=== PATIENT | female | born 1950 | race Caucasian/White ===

== ENCOUNTER → 2021-01-03 09:04 | Outpatient (CLI) | payer MEDICAID, MEDICARE, SELFPAY ==
[2021-01-03 12:14] LABS: Absolute Lymphocyte Count 2.79 X10^3/uL (0.83-4.51); Absolute Neutrophil Count 5.7 X10^3/uL (2.0-7.7); Basophil# 0.09 X10^3/uL; Basophil% 0.9 % (0-1); Eosinophil# 0.42 X10^3/uL; Eosinophils% 4.3 % (0-5); Hematocrit 42.4 % (37-47); Hemoglobin 13.8 g/dL (12.0-15.0); Lymphocyte # 2.79 X10^3/ul (0.83-4.51); Lymphocyte % 28.5 % (19-41); Mean Corp Hgb Conc 32.5 g/dL (32-36); Mean Corpuscular Hgb 30.1 pg (27.0-32.0); Mean Corpuscular Volume 92.4 fL (81-99); Mean Platelet Vol. 10.5 fl (6.2-12.0); Monocyte# 0.77 X10^3/uL; Monocyte% 7.9 % (0-10); NRBC Flagged by Analyzer 0 % (0-5); Neutrophil # 5.68 X10^3/uL (2.7-7.7); Platelet Count 258 K/mm3 (150-450); RBC Distribution Width CV 13.3 % (11.6-14.6); RBC Distribution Width SD 44.9 fl (35.1-43.9); Red Blood Count 4.59 M/mm3 (4.2-5.4); White Blood Count 9.8 K/mm3 (4.4-11.0)
[2021-01-03 12:40] LABS: ALB/GLOB Ratio 0.8 RATIO (0.9-2.4); AST(SGOT) 22 U/L (15-37); Alanine Aminotransfer ALT/SGPT 31 U/L (13-56); Albumin, Serum 3.3 g/dL (3.2-5.0); Alkaline Phosphatase 72 U/L (45-117); Anion Gap 5 (5-15); BUN 12 mg/dL (7-18); BUN/Creat Ratio 15.9 RATIO (10-20); Chloride 103 mmol/L (98-107); Cholesterol 158 mg/dL (200); Creatinine, Serum 0.76 mg/dL (0.55-1.02); EST Glomerular Filtration Rate 80 mL/min (>60); Est Glom Filt Rate - Afr Amer 97 mL/min (>60); Free T3 2.3 pg/mL (2.18-3.98); Glucose 129 mg/dL (74-106); High Density Lipoprotein 58 mg/dL; Potassium 4.4 mmol/L (3.5-5.1); Protein, Total 7.3 g/dL (6.4-8.2); Sodium Level 134 mmol/L (136-145); T4 Free Direct 1.19 ng/dL (0.76-1.46); Thyroid Stim Hormone (TSH) 1.84 uIU/mL (0.358-3.74); Triglycerides 217 mg/dL; Very Low Density Lipoprotein 43 mg/dL (5-40)
[2021-01-03 12:41] LABS: Vitamin D,25 Hydroxy 27.7 ng/mL
[2021-01-03 12:54] LABS: Hemoglobin A1c 6.6 % (3.8-5.6)
--- NOTE | 2021-01-03 12:58 | EKG12_ITS ---
Test Reason : ROUTINE Blood Pressure : / mmHG Vent. Rate : 050 BPM Atrial Rate : 050 BPM P-R Int : 214 ms QRS Dur : 088 ms QT Int : 410 ms P-R-T Axes : 024 031 054 degrees QTc Int : 373 ms Sinus bradycardia with 1st degree A-V block Otherwise normal ECG Confirmed by PETERSON WOLF, JEFFREY ([id number]), scientific publications editor LENORE PARKER ([id number]) on 01/06/2021 1:10:31 PM Referred By: Khalida Pires Confirmed By:JEFFREY WINKLER MD
== END ==
PROVIDERS: PCP Internal Medicine; Referring Provider Internal Medicine; Visit Provider Internal Medicine
DX: R06.00 Dyspnea, unspecified (principal); E11.9 Type 2 diabetes mellitus without complications; E03.9 Hypothyroidism, unspecified; E78.5 Hyperlipidemia, unspecified; I10 Essential (primary) hypertension; M19.90 Unspecified osteoarthritis, unspecified site; E55.9 Vitamin D deficiency, unspecified
CPT/HCPCS: 36415; 80053; 80061; 82306; 83036; 84439; 84443; 84481; 85025; 93005

== ENCOUNTER → 2021-05-01 10:28 | Outpatient (CLI) | payer MEDICARE, MEDICAID, SELFPAY ==
[2021-05-01 12:21] LABS: Absolute Lymphocyte Count 3.09 X10^3/uL (0.83-4.51); Absolute Neutrophil Count 5.9 X10^3/uL (2.0-7.7); Basophil# 0.12 X10^3/uL; Basophil% 1.1 % (0-1); Eosinophils% 4.7 % (0-5); Hematocrit 41.3 % (37-47); Hemoglobin 13.9 g/dL (12.0-15.0); Lymphocyte # 3.09 X10^3/ul (0.83-4.51); Lymphocyte % 29.3 % (19-41); Mean Corp Hgb Conc 33.7 g/dL (32-36); Mean Corpuscular Hgb 30.3 pg (27.0-32.0); Mean Platelet Vol. 10.2 fl (6.2-12.0); Monocyte# 0.92 X10^3/uL; Monocyte% 8.7 % (0-10); NRBC Flagged by Analyzer 0 % (0-5); Neutrophil # 5.87 X10^3/uL (2.7-7.7); Neutrophil % 55.8 % (47-70); Platelet Count 278 K/mm3 (150-450); RBC Distribution Width CV 12.9 % (11.6-14.6); RBC Distribution Width SD 42.6 fl (35.1-43.9); Red Blood Count 4.59 M/mm3 (4.2-5.4); White Blood Count 10.5 K/mm3 (4.4-11.0)
[2021-05-01 12:46] LABS: ALB/GLOB Ratio 0.8 RATIO (0.9-2.4); AST(SGOT) 21 U/L (15-37); Alanine Aminotransfer ALT/SGPT 31 U/L (13-56); Albumin, Serum 3.2 g/dL (3.2-5.0); Alkaline Phosphatase 81 U/L (45-117); Anion Gap 6 (5-15); BUN 16 mg/dL (7-18); BUN/Creat Ratio 20.3 RATIO (10-20); Calcium,Total 9.1 mg/dL (8.5-10.1); Chloride 101 mmol/L (98-107); Cholesterol 146 mg/dL (200); Creatinine, Serum 0.79 mg/dL (0.55-1.02); EST Glomerular Filtration Rate 76 mL/min (>60); Est Glom Filt Rate - Afr Amer 92 mL/min (>60); Free T3 2.4 pg/mL (2.18-3.98); Globulin 4.2 g/dL (2.2-4.2); Glucose 135 mg/dL (74-106); High Density Lipoprotein 51 mg/dL; Potassium 4.4 mmol/L (3.5-5.1); Protein, Total 7.4 g/dL (6.4-8.2); Sodium Level 133 mmol/L (136-145); T4 Free Direct 1.54 ng/dL (0.76-1.46); Thyroid Stim Hormone (TSH) 1.19 uIU/mL (0.358-3.74); Triglycerides 187 mg/dL; Very Low Density Lipoprotein 37 mg/dL (5-40)
[2021-05-01 12:48] LABS: Hemoglobin A1c 6.6 % (3.8-5.6)
== END ==
PROVIDERS: PCP Internal Medicine; Visit Provider Internal Medicine
DX: E03.9 Hypothyroidism, unspecified (principal); E11.9 Type 2 diabetes mellitus without complications; E66.9 Obesity, unspecified; E78.5 Hyperlipidemia, unspecified; I10 Essential (primary) hypertension; R06.00 Dyspnea, unspecified; Z87.81 Personal history of (healed) traumatic fracture
CPT/HCPCS: 36415; 80053; 80061; 83036; 84439; 84443; 84481; 85025

== ENCOUNTER 2021-07-20 16:59 | Observation (INO) | payer MEDICARE, MEDICAID, SELFPAY ==
[2021-07-20] VITALS (8 sets, daily range): BP systolic 109–195; BP diastolic 45–141; PULSE 55–100; RESP 15–28; TEMP 36.1–39.6; O2SAT 91–98; BMI 40.2; BMI 40.4
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
--- NOTE | 2021-07-20 18:20 | RAD_ITS ---
HISTORY: fever EXAMINATION/TECHNIQUE: XR Chest 1 View: COMPARISON: Thoracic spine radiograph January 12, 2013 FINDINGS: LINES/DEVICES: None. LUNGS: Diffuse interstitial coarsening. Small patchy opacities in the left lung base. No effusion. No pneumothorax. MEDIASTINUM: No cardiomegaly. MUSCULOSKELETAL: No acute osseous finding. RAD/Chest 1 View (Portable) IMPRESSION: Retrocardiac left lower lung airspace opacification concerning for pneumonia in the appropriate setting. Interstitial coarsening suggestive of chronic interstitial lung disease. at 1921 Reported and signed by: Torres Yu MD Electronically Signed: Torres Yu MD at 19:20 EST ,
[2021-07-20 18:44] LABS: Absolute Lymphocyte Count 1.56 X10^3/uL (0.83-4.51); Absolute Neutrophil Count 10.5 X10^3/uL (2.0-7.7); Basophil# 0.08 X10^3/uL; Basophil% 0.6 % (0-1); Eosinophil# 0.05 X10^3/uL; Eosinophils% 0.4 % (0-5); Hematocrit 37.6 % (37-47); Hemoglobin 13.5 g/dL (12.0-15.0); Lymphocyte # 1.56 X10^3/ul (0.83-4.51); Lymphocyte % 11.2 % (19-41); Mean Corp Hgb Conc 35.9 g/dL (32-36); Mean Corpuscular Hgb 30.8 pg (27.0-32.0); Mean Corpuscular Volume 85.8 fL (81-99); Mean Platelet Vol. 10.6 fl (6.2-12.0); Monocyte# 1.64 X10^3/uL; Monocyte% 11.8 % (0-10); NRBC Flagged by Analyzer 0 % (0-5); Neutrophil # 10.49 X10^3/uL (2.7-7.7); Neutrophil % 75.4 % (47-70); POSITIVE DIFFERENTIAL YES; Platelet Count 215 K/mm3 (150-450); RBC Distribution Width SD 40.7 fl (35.1-43.9); Red Blood Count 4.38 M/mm3 (4.2-5.4); White Blood Count 13.9 K/mm3 (4.4-11.0)
[2021-07-20 18:54] LABS: Differential Indicated SCAN CRITERIA MET
[2021-07-20] MEDS: 0.9% Normal Saline 1,000 ML 1000 ML IV (18:55)
[2021-07-20 18:56] LABS: ALB/GLOB Ratio 0.7 RATIO (0.9-2.4); AST(SGOT) 19 U/L (15-37); Alanine Aminotransfer ALT/SGPT 20 U/L (13-56); Albumin, Serum 2.8 g/dL (3.2-5.0); Alkaline Phosphatase 81 U/L (45-117); Anion Gap 8 (5-15); BUN 16 mg/dL (7-18); BUN/Creat Ratio 16.3 RATIO (10-20); Calcium,Total 9.1 mg/dL (8.5-10.1); Chloride 100 mmol/L (98-107); Creatinine, Serum 0.98 mg/dL (0.55-1.02); EST Glomerular Filtration Rate 59 mL/min (>60); Est Glom Filt Rate - Afr Amer 72 mL/min (>60); Estimated Creatinine Clearance 41.04 ml/min; Glucose 162 mg/dL (74-106); Potassium 4.2 mmol/L (3.5-5.1); Protein, Total 6.8 g/dL (6.4-8.2); Sodium Level 130 mmol/L (136-145)
[2021-07-20 19:13] LABS: Lactic Acid 1.1 mmol/L (0.4-1.9)
[2021-07-20 19:29] LABS: Platelet Estimate ADEQUATE (ADEQ); Red Cell Morphology NORM C+C NORMAL (NORM C&C)
[2021-07-20 20:07] LABS: Color, Urine Yellow (Yellow); Glucose, Dipstick Normal (Normal); Ketone-Dipstick 5 mg/dl (Negative); Leukocyte Esterase-Dipstick 500 /ul (Negative); Mucous, Urine 0 SEEN /hpf (<or=2+); Nitrite-Dipstick Negative (Negative); Occult Blood-Urine 50 /ul (Negative); Protein-Dipstick 30 mg/dl (Negative); Specific Gravity, Urine 1.015 (1.002-1.030); Urine Bilirubin Dipstick Negative (Negative); Urine Urobilinogen 1 mg/dl (Normal)
[2021-07-20 20:36] LABS: Amorphous Sediment 1+ URATE; Bacteria 2+ /hpf (None Seen); Red Blood Cells-Urine 0-5 SEEN /hpf (0-5); Squamous Epithelial Cells - UA 0-5 SEEN /hpf (5-10); Urine Clarity Sl Cldy (Clear); White Blood Cells 25-50 SEEN /hpf (0-5)
[2021-07-20] MEDS: Ceftriaxone 1 GM/50 ML BAG IV (22:00)
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
[2021-07-20] MEDS: 0.9% Normal Saline 1,000 ML 100 ML IV (23:22)
--- NOTE | 2021-07-20 23:27 | NURSING ---
patient with rigors on admission, altering all vital signs. Will medicate with prn Tylenol and retake vitals when rigors subside.
[2021-07-20] MEDS: Ondansetron 4 MG/2 ML Vial IV (23:31)
[2021-07-20] MEDS: Acetaminophen 325 MG Tablet 650 MG PO (23:33)
[2021-07-21 01:00] VITALS: BP 124/44; PULSE 71; RESP 20; TEMP 37.7; O2SAT 97
[2021-07-21 05:43] LABS: Absolute Lymphocyte Count 1.68 X10^3/uL (0.83-4.51); Absolute Neutrophil Count 8.9 X10^3/uL (2.0-7.7); Basophil# 0.06 X10^3/uL; Basophil% 0.5 % (0-1); Eosinophil# 0.05 X10^3/uL; Eosinophils% 0.4 % (0-5); Hematocrit 35.4 % (37-47); Hemoglobin 11.9 g/dL (12.0-15.0); Lymphocyte # 1.68 X10^3/ul (0.83-4.51); Lymphocyte % 13.6 % (19-41); Mean Corp Hgb Conc 33.6 g/dL (32-36); Mean Corpuscular Hgb 30.4 pg (27.0-32.0); Mean Corpuscular Volume 90.3 fL (81-99); Mean Platelet Vol. 9.9 fl (6.2-12.0); Monocyte# 1.66 X10^3/uL; Monocyte% 13.4 % (0-10); NRBC Flagged by Analyzer 0 % (0-5); Neutrophil # 8.86 X10^3/uL (2.7-7.7); Neutrophil % 71.7 % (47-70); POSITIVE DIFFERENTIAL YES; Platelet Count 198 K/mm3 (150-450); RBC Distribution Width CV 13.2 % (11.6-14.6); RBC Distribution Width SD 43.6 fl (35.1-43.9); Red Blood Count 3.92 M/mm3 (4.2-5.4); White Blood Count 12.4 K/mm3 (4.4-11.0)
[2021-07-21 05:46] LABS: Differential Indicated SCAN CRITERIA MET
[2021-07-21 05:57] LABS: Anion Gap 5 (5-15); BUN 17 mg/dL (7-18); BUN/Creat Ratio 16.5 RATIO (10-20); Calcium,Total 8.1 mg/dL (8.5-10.1); Chloride 104 mmol/L (98-107); Creatinine, Serum 1.03 mg/dL (0.55-1.02); EST Glomerular Filtration Rate 56 mL/min (>60); Est Glom Filt Rate - Afr Amer 68 mL/min (>60); Estimated Creatinine Clearance 39.05 ml/min; Glucose 142 mg/dL (74-106); Potassium 3.9 mmol/L (3.5-5.1); Sodium Level 133 mmol/L (136-145)
[2021-07-21 06:00] VITALS: BP 110/56; PULSE 55; RESP 20; TEMP 36.5; O2SAT 98
[2021-07-21] MEDS: Levothyroxine 137 MCG Tablet PO (06:39)
[2021-07-21 07:01] LABS: Bedside Glucose 124 mg/dL (74-106)
[2021-07-21 07:56] VITALS: BP 116/52; PULSE 57; RESP 16; TEMP 36.9; O2SAT 100
[2021-07-21 07:59] VITALS: PULSE 57
[2021-07-21] MEDS: Enoxaparin 40 MG/0.4 ML Syringe SC (08:00)
[2021-07-21] MEDS: 0.9% Normal Saline 1,000 ML 100 ML IV (10:23)
[2021-07-21 11:19] VITALS: O2SAT 92
[2021-07-21 11:25] LABS: Bedside Glucose 161 mg/dL (74-106)
--- NOTE | 2021-07-21 11:38 | PCM.DC ---
Discharge Instructions Diet Discharge Diet: 1800 Calorie Control Diet Activity Discharge Activity: Return to Normal Activity Weight Bearing Status: Full weight bearing Follow Up Care Test Results: Test results from this visit will be discussed in further detail at your follow-up appointment, if applicable. Discharge Plan Admission Admit Date/Time: 07/20/21 22:19 Primary Reason for Your Visit: left lower lobe pneumonia Attending Provider: Rojas Humphries Primary Care Provider: Khalida Pires Discharge Orders/Prescriptions Prescriptions: New levofloxacin 500 mg tablet 500 mg PO DAILY Qty: 7 RF: 0 Continued metoprolol tartrate 75 mg tablet 75 mg PO BID Qty: 180 RF: 3 omega-3 fatty acids-fish oil [Fish Oil] 360-1,200 mg capsule 1 cap PO BID RF: 0 levothyroxine 137 mcg tablet 137 mcg PO DAILY Qty: 90 RF: 3 metformin 500 mg tablet 500 mg PO BID RF: 0 losartan 100 mg tablet 100 mg PO DAILY Qty: 90 RF: 1 atorvastatin 40 mg tablet 40 mg PO QHS Qty: 90 RF: 1 Referrals / Follow Up: Khalida Pires MD [Primary Care Provider] - Within 2 Weeks Disposition Disposition (needs filled in before D/C Order can be placed): Home, Self Care
--- NOTE | 2021-07-21 18:47 | DS.PCM_ITS ---
Providers Date of Admission: 07/20/21 Date of Discharge: 07/21/21 Primary Care Physician: Dr. Khalida Pires MD Reason For Visit: UTI & PNEUMONIA Diagnosis Discharge Diagnosis (1) Pneumonia: Status: Acute Code(s): J18.9 - Pneumonia, unspecified organism (2) Acute UTI: Status: Acute Code(s): N39.0 - Urinary tract infection, site not specified Plan: 1. Community-acquired pneumonia #2 acute cystitis secondary to E. coli #3 acute bacteremia with gram-negative alvaro-exact bacteria unknown #4 type 2 diabetes #5 hypothyroidism #6 hyperlipidemia #7 essential hypertension Medications at Discharge Home Medications omega-3 fatty acids-fish oil 360 mg-1,200 mg capsule 1 cap PO BID 12/05/20 metoprolol tartrate 75 mg tablet 75 mg PO BID #180 tab 01/02/21 levothyroxine 137 mcg tablet 137 mcg PO DAILY #90 tab 05/01/21 atorvastatin 40 mg tablet 40 mg PO QHS #90 tab 06/23/21 losartan 100 mg tablet 100 mg PO DAILY #90 tab 06/23/21 metformin 500 mg PO BID 07/20/21 levofloxacin 500 mg PO DAILY #7 tab 07/21/21 Hospital Course Operations None Procedures None Summary of Care Provided Minutes Spent on Discharge: 31 Hospital Course: This 71-year-old white female was seen in the emergency room with complaints of a fever at home as high as 103.3 x 3 days. Patient had n ausea but no vomiting, patient admitted to one episode of diarrhea on 07/20/2021. Patient complained of nonproductive cough. Work-up in the emergency room included labs which revealed an elevated white blood cell count at 13.9, chemistry profile was remarkable for a glucose of 162 and a sodium of 130, patient's urinalysis indicated a urinary tract infection. Patient had a chest x-ray which was suspicious for a left lower lobe pneumonia. Patient was given IV antibiotics and she was placed in observation status on MedSurg 3, she was not hypoxic-she was placed on oxygen at night during her stay due to the fact that she was on CPAP at home. On 07/21/2021, patient was seen and examined: On examination she appeared in good health and spirits, she does not appear to be in any distress. Vital signs as documented. Skin warm and dry and without overt rashes. Neck without JVD, thyroid appears normal, trachea is midline, neck is supple. Lungs clear, normal air movement was noted. Heart exam notable for regular rhythm, normal sounds and absence of murmurs, rubs or gallops. Abdomen unremarkable and without evidence of organomegaly, masses, or abdominal aortic enlargement, bowel sounds are prese nt in all 4 quadrants, no abdominal tenderness was noted. Extremities nonedematous, no cyanosis was noted, no clubbing was noted. Neuro: Cranial nerves II through XII are grossly intact, no focal motor deficits were noted, sensation to light touch and pinprick is intact, motor exam 5/5 throughout. Psych: Patient is alert and oriented x3, she does not appear anxious or depressed, she does not appear agitated. Patient's blood culture resulted in showing gram-negative rods on its Gram stain, the exact organism is unknown. Patient's urine culture grew out what was felt to be E. coli but sensitivities were not available at the time of discharge home. On 07/21/2021, patient was discharged home in stable condition. Weight / BMI Weight Weight: 100.244 kg Body Mass Index (BMI) 40.4 ABG / Lab / Microbiology Data Result Diagrams: 07/21/21 05:04 07/21/21 05:04 Laboratory: Laboratory Results - last 24 hr 07/20/21 17:44: WBC 13.9 H, RBC 4.38, Hgb 13.5, Hct 37.6, MCV 85.8, MCH 30.8, MCHC 35.9, RDW Std Deviation 40.7, RDW Coeff of Arline 13.0, Plt Count 215, MPV 10.6, Immature Gran % (Auto) 0.600, Neut % (Auto) 75.4 H, Lymph % (Auto) 11.2 L, [place] % (Auto) 11.8 H, Eos % (Auto) 0.4, Baso % (Auto) 0.6, Absolute Neuts (auto) 10.5 H, Absolute Lymphs (auto) 1.56, Nucleated RBC % 0, Diff Path Review May foll, Platelet Estimate ADEQUATE, RBC Morphology NORM C+C 07/20/21 17:44: Sodium 130 L, Potassium 4.2, Chloride 100, Carbon Dioxide 22.0, Anion Gap 8, BUN 16, Creatinine 0.98, Estim Creat Clear Calc 41.04, Est GFR (MDRD) Af Amer 72, Est GFR (MDRD) Non-Af 59 L, BUN/Creatinine Ratio 16.3, Glucose 162 H, Calcium 9.1, Total Bilirubin 1.10 H, AST 19, ALT 20, Alkaline Phosphatase 81, Total Protein 6.8, Albumin 2.8 L, Globulin 4.0, Albumin/Globulin Ratio 0.7 L 07/20/21 18:35: Lactic Acid 1.1 07/20/21 20:00: Urine Color Yellow, Urine Clarity Sl Cldy, Urine pH 5.0, Ur Specific [place] 1.015, Urine Protein 30 H, Urine Glucose (UA) Normal, Urine K etones 5 H, Urine Occult Blood 50 H, Urine Nitrite Negative, Urine Bilirubin Negative, Urine Urobilinogen 1 H, Ur Leukocyte Esterase 500 H, Urine RBC 0-5 SEEN, Urine WBC 25-50 SEEN, Ur Squamous Epith Cells 0-5 SEEN, Amorphous Sediment 1+ URATE, Urine Bacteria 2+, Urine Mucus 0 SEEN 07/21/21 05:04: WBC 12.4 H, RBC 3.92 L, Hgb 11.9 L, Hct 35.4 L, MCV 90.3 D, MCH 30.4, MCHC 33.6 D, RDW Std Deviation 43.6, RDW Coeff of Arline 13.2, Plt Count 198, MPV 9.9, Immature Gran % (Auto) 0.400, Neut % (Auto) 71.7 H, Lymph % (Auto) 13.6 L, [place] % (Auto) 13.4 H, Eos % (Auto) 0.4, Baso % (Auto) 0.5, Absolute Neuts (auto) 8.9 H, Absolute Lymphs (auto) 1.68, Nucleated RBC % 0, Diff Path Review September07/21/21 05:04: Sodium 133 L, Potassium 3.9, Chloride 104, Carbon Dioxide 24.0, Anion Gap 5, BUN 17, Creatinine 1.03 H, Estim Creat Clear Calc 39.05, Est GFR (MDRD) Af Amer 68, Est GFR (MDRD) Non-Af 56 L, BUN/Creatinine Ratio 16.5, Glucose 142 H, Calcium 8.1 L 07/21/21 06:37: POC Glucose 124 H 07/21/21 11:16: POC Glucose 161 H Microbiology: Microbiology 07/20/21 18:35 Blood Culture (Wb) - Venous Blood Culture - Preliminary 07/21/21 07:50 Sputum, Expectorated/Coughed Gram Stain - Final 07/20/21 20:00 Urine, Clean Catch Urine Culture - Preliminary Presumptive E. coli 07/20/21 19:00 Nasal Secretion SARS-CoV-2 Antigen (Rapid) - Final Radiography Diagnostic Testing: Radiology Impression Chest X-Ray 07/20/21 18:20 IMPRESSION: Retrocardiac left lower lung airspace opacification concerning for pneumonia in the appropriate setting. Interstitial coarsening suggestive of chronic interstitial lung disease. at 1921 Reported and signed by: Torres Yu MD Electronically Signed: Torres Yu MD at 19:20 EST Reading Location ID and State: [facility] / [place] Tel , Service support , D/C Instructions Discharge Diet: 1800 Calorie Control Diet Weight Bearing Status: Full weight bearing Meaningful Use Info Meaningful Use Diagnoses (Choose all that apply): None applicable Discharge Plan Admission Admit Date/Time: 07/20/21 22:19 Primary Reason for Your Visit: left lower lobe pneumonia Attending Provider: Rojas Humphries Primary Care Provider: Khalida Pires Discharge Orders/Prescriptions Prescriptions: New levofloxacin 500 mg tablet 500 mg PO DAILY Qty: 7 RF: 0 Continued metoprolol tartrate 75 mg tablet 75 mg PO BID Qty: 180 RF: 3 omega-3 fatty acids-fish oil [Fish Oil] 360-1,200 mg capsule 1 cap PO BID RF: 0 levothyroxine 137 mcg tablet 137 mcg PO DAILY Qty: 90 RF: 3 metformin 500 mg tablet 500 mg PO BID RF: 0 losartan 100 mg tablet 100 mg PO DAILY Qty: 90 RF: 1 atorvastatin 40 mg tablet 40 mg PO QHS Qty: 90 RF: 1 Referrals / Follow Up: Khalida Pires MD [Primary Care Provider] - Within 2 Weeks Disposition Disposition (needs filled in before D/C Order can be placed): Home, Self Care Charges/Coding Visit Charges OBSV E&M: 83444 Observation care discharge
[2021-07-22 10:28] LABS: Pathologist Review Reviewed
[2021-07-22 10:32] LABS: Pathologist Review Reviewed
--- NOTE | 2021-07-23 02:05 | PCM.HOSP.N ---
Hospitalist Note Called per RN with lab reporting 1/2 positive bld cx. Noted GPC w/ suspected poss coag staph, possible contaminant. Reviewed labs and noted 1/2 with possible GNR LF and patient with UTI > 100,000 E. Coli with pansensitivity treated with levaquin. Will relay to day team hospitalist who are familiar with patient for follow-up as needed.
--- NOTE | 2021-07-23 15:55 | PN.HOSP_ITS ---
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 She was discharged home with Levaquin for 7 more days which would complete a course for E. coli bacteremia. Given the gram-positive cocci were 1 of 2 bottles positive it suspected that these are contaminant and no further follow-up is required.
== END 2021-07-21 13:28 | disposition home or self-care (01) ==
LOC: ED 22:27 → MS3 22:32
PROVIDERS: Admitting Provider Family Medicine; Emergency Provider Emergency Medicine; PCP Internal Medicine; Visit Provider Internal Medicine
DX: J18.9 Pneumonia, unspecified organism (principal); E66.01 Morbid (severe) obesity due to excess calories; Z68.41 Body mass index [BMI] 40.0-44.9, adult; E11.9 Type 2 diabetes mellitus without complications; B96.89 Other specified bacterial agents as the cause of diseases classified elsewhere; E78.5 Hyperlipidemia, unspecified; B95.7 Other staphylococcus as the cause of diseases classified elsewhere; B96.20 Unspecified Escherichia coli [E. coli] as the cause of diseases classified elsewhere; N30.00 Acute cystitis without hematuria; I10 Essential (primary) hypertension; M19.90 Unspecified osteoarthritis, unspecified site; E03.9 Hypothyroidism, unspecified; Z79.84 Long term (current) use of oral hypoglycemic drugs; Z79.890 Hormone replacement therapy; Z79.899 Other long term (current) drug therapy; Z20.822 Contact with and (suspected) exposure to COVID-19
CPT/HCPCS: 36415; 71045; 80048; 80053; 81001; 82962; 83605; 85025; 87040; 87070; 87077; 87086; 87088; 87186; 87205; 87426; 96361; 96365; 96367; 96372; 96375; 99218; 99285; J7030; G0378; J2405

== ENCOUNTER 2022-01-29 10:30 | Outpatient (RCR) | payer MEDICARE, MEDICAID, SELFPAY ==
--- NOTE | 2021-11-24 13:45 | HP.PTEVAL_ITS ---
Patient's Visit Information MARIA ANTONIA NAGEL is a 71 year old F referred to Physical Therapy by Dr. Khalida Pires MD with a diagnosis of PAIN IN LEFT SSHOULDER. Date of Evaluation: 11/24/21 Physical Therapist: Nikko Alejandro, PT, Cert MDT, OCS - Visit Plan Frequency: 2x /Week Duration: 4 Weeks Plan: PT INTERVETIONS POSTURAL EX'S , GRADED RTC/SCAPULAR STRENGTHNEING ,ROM ,AND MODALTIES - Subjective This 71 y/o female presents to physical therapy with left shoulder pain. Patient injury lifting mom on commode felt pain ~ 1 month ago. Pain located lateral deltoid /triceps and superior acromion. Patient pain became worse no diagnostics . Recommended PT then if doesn't get better. Aggravating factors raising arm OH ,lifting affecting ADLS' and self hygiene. Patient symptoms affects sleeping. Patient denies paresthesia/tingling. Patient was taking care mom until she passed. Patient described as ache toothache attempting lifting described as sharp pain. SOCIAL : single . VOCATION: retired. - Pain Left Shoulder Pain Intensity (Out of 10): 8 Pain Intensity Range: 10 - Objective POSTURE: mild forward posture rounded shoulders. NEURO: denies paresthesia/tingling. PALPATION: bicipital groove long head. AROM: shoulder flexion 140 degrees ,abduction 140 degrees pain eccentric, ER 80 degrees. MMT(PEAK FORCE) : infraspinatus 12.3,supraspinatus 10.5 ,subscapularis 15.6, anterior deltoid 8.6.,lateral 6.8 - Special Tests L Shoulder External Rotation Lag Test - RC Tear: Positive L Shoulder Drop Sign - IS Test: Negative L Shoulder Empty Can - SS: Positive L Shoulder Belly Press - SupScap: Negative L Shoulder Neer - Impingement: Positive L Shoulder Smart Venu - Impingement: Positive L Shoulder Biceps Load Test - Labrum: Positive - Balance/Special Test Scores Quick DASH Score: 47.7250 - Goals Goal 1:: I with HEP for shoulder Goal Time Frame: 4-6 Weeks Goal 2:: Patient to demonstrate 50 % improvement with decrease pain to improve function Goal Time Frame: 4-6 Weeks Goal 3:: Patient increase peak force of RTC/deltoid by 5-10 to improve function Goal Time Frame: 4-6 Weeks Goal 4:: Patient to improve ADLS' and housework tasks above 90 degrees to reach in cupboard Goal Time Frame: 4-6 Weeks Goal 5:: Patient to improve quick dash 5 points to improve QOL and function with left UE Goal Time Frame: 4-6 Weeks - Rehabilitation Potential Rehabilitation Potential: Good - Anticipated Interventions Patient/Client Instruction: Educate patient on: Condition, Plan of Care For the Purpose of:: To decrease pain, To increase ROM, To improve muscle performance and motor function, To improve ability to perform ADL's, To increase tolerance to activity/condition/position, To improve ability of physical actions for home/community/work/leisure, To improve health of tissue, To decrease soft tissue restriction, To increase flexibility/ROM, To prevent re-injury, To improve tolerance to ADL's Therapeutic Exercise to Include: Strength training, Postural training, Passive ROM, Active ROM Comment: RTC For the Purpose of:: To decrease pain, To increase ROM, To improve muscle performance and motor function, To improve ability to perform ADL's, To increase tolerance to activity/condition/position, To improve ability of physical actions for home/community/work/leisure, To improve health of tissue, To decrease soft tissue restriction, To increase flexibility/ROM, To reduce risk of recurrence, To prevent re-injury, To improve tolerance to ADL's TENS: Yes IF ES: Yes Cryotherapy (ice pack, ice massage): Yes Ultrasound (thermal/non thermal): Yes For the Purpose of:: To decrease pain, To decrease swelling/inflammation, To increase ROM, To improve health of tissue, To decrease soft tissue restriction Thank you for the opportunity to evaluate your patient. For Medicare and Medicare HMO plans, please review the plan of care and approve it. It will need to be FAXED BACK to us at [phone] for Medicare purposes. For Medicare only, by signing this I certify the plan of care. Please let me know if there are questions or concerns regarding this plan of care. Physician Signature : Date:
--- NOTE | 2022-01-29 11:14 | HP.PTDCSUM ---
It has been my pleasure to treat MARIA ANTONIA ANGEL referred by Dr. Khalida Pires MD, with the diagnosis of PAIN IN LEFT SHOULDER for a total of 17 visit(s). Discharge Date: 01/29/22 Please see the following information for a summary of their discharge status. Subjective: Doing good Left Shoulder Pain Intensity (Out of 10): 0 % Improvement: 80 Objective/Function: AROM: SHOULDER FLEXION 140 DEGREES ,ABDUCTION 140,ER 90. MMT: RTC 4-/5 ,DELTIOD 4-/5 Goal 1:: I with HEP for shoulder Goal 2:: Patient to demonstrate 50 % improvement with decrease pain to improve function Goal 3:: Patient increase peak force of RTC/deltoid by 5-10 to improve function Goal 4:: Patient to improve ADLS' and housework tasks above 90 degrees to reach in cupboard Goal 5:: Patient to improve quick dash 5 points to improve QOL and function with left UE Plan: PT INTERVETIONS POSTURAL EX'S , GRADED RTC/SCAPULAR STRENGTHNEING ,ROM ,AND MODALTIES Discharge Comments: HEP If there are questions or concerns regarding this patient's physical therapy, please feel free to call me at [phone]. Thank you for the referral of this patient. Sincerely, Nikko Alejandro, PT, Cert MDT, OCS Balance/Gait/Functional tests - Balance/Special Test Scores Quick DASH Score: 9.0900
== END 2022-01-29 19:00 | disposition home or self-care (01) ==
LOC: PT 10:30
PROVIDERS: PCP Internal Medicine; Referring Provider Internal Medicine; Visit Provider Internal Medicine
DX: M25.512 Pain in left shoulder (principal)
CPT/HCPCS: 97110; 97162

== ENCOUNTER → 2022-02-05 | Outpatient (CLI) | payer MEDICARE, MEDICAID, SELFPAY ==
[2022-02-05 12:54] LABS: Absolute Lymphocyte Count 3.79 X10^3/uL (0.83-4.51); Absolute Neutrophil Count 7.1 X10^3/uL (2.0-7.7); Basophil# 0.11 X10^3/uL; Basophil% 0.9 % (0-1); Eosinophil# 0.47 X10^3/uL; Eosinophils% 3.7 % (0-5); Hematocrit 43.4 % (37-47); Hemoglobin 14.1 g/dL (12.0-15.0); Lymphocyte # 3.79 X10^3/ul (0.83-4.51); Lymphocyte % 29.8 % (19-41); Mean Corp Hgb Conc 32.5 g/dL (32-36); Mean Corpuscular Hgb 30.3 pg (27.0-32.0); Mean Corpuscular Volume 93.3 fL (81-99); Mean Platelet Vol. 10.5 fl (6.2-12.0); Monocyte% 9.4 % (0-10); NRBC Flagged by Analyzer 0 % (0-5); Neutrophil # 7.09 X10^3/uL (2.7-7.7); Neutrophil % 55.7 % (47-70); Platelet Count 273 K/mm3 (150-450); RBC Distribution Width CV 13.6 % (11.6-14.6); RBC Distribution Width SD 46.5 fl (35.1-43.9); Red Blood Count 4.65 M/mm3 (4.2-5.4); White Blood Count 12.7 K/mm3 (4.4-11.0)
[2022-02-05 13:19] LABS: Hemoglobin A1c 6.7 % (3.8-5.6)
[2022-02-05 13:32] LABS: ALB/GLOB Ratio 0.8 RATIO (0.9-2.4); AST(SGOT) 17 U/L (15-37); Alanine Aminotransfer ALT/SGPT 29 U/L (13-56); Albumin, Serum 3.4 g/dL (3.2-5.0); Alkaline Phosphatase 84 U/L (45-117); Anion Gap 7 (5-15); BUN 17 mg/dL (7-18); BUN/Creat Ratio 20.7 RATIO (10-20); Calcium,Total 9.3 mg/dL (8.5-10.1); Chloride 102 mmol/L (98-107); Cholesterol 155 mg/dL (200); Creatinine, Serum 0.82 mg/dL (0.55-1.02); EST Glomerular Filtration Rate 73 mL/min (>60); Est Glom Filt Rate - Afr Amer 88 mL/min (>60); Free T3 2.3 pg/mL (2.18-3.98); Globulin 4.2 g/dL (2.2-4.2); Glucose 120 mg/dL (74-106); High Density Lipoprotein 61 mg/dL; Magnesium 1.8 mg/dL (1.6-2.6); Potassium 4.4 mmol/L (3.5-5.1); Protein, Total 7.6 g/dL (6.4-8.2); Sodium Level 136 mmol/L (136-145); T4 Free Direct 1.31 ng/dL (0.76-1.46); Thyroid Stim Hormone (TSH) 1.78 uIU/mL (0.358-3.74); Triglycerides 281 mg/dL; Very Low Density Lipoprotein 56 mg/dL (5-40)
== END | disposition home or self-care (01) ==
LOC: LAB 11:22
PROVIDERS: PCP Internal Medicine; Referring Provider Internal Medicine; Visit Provider Internal Medicine
DX: I10 Essential (primary) hypertension (principal); E11.9 Type 2 diabetes mellitus without complications; Z85.828 Personal history of other malignant neoplasm of skin; Z86.73 Personal history of transient ischemic attack (TIA), and cerebral infarction without residual deficits; E78.5 Hyperlipidemia, unspecified; E03.9 Hypothyroidism, unspecified; E55.9 Vitamin D deficiency, unspecified; R06.00 Dyspnea, unspecified; Z86.39 Personal history of other endocrine, nutritional and metabolic disease
CPT/HCPCS: 36415; 80053; 80061; 82306; 83036; 83735; 84439; 84443; 84481; 85025

== ENCOUNTER → 2022-03-03 | Outpatient (CLI) | payer MEDICARE, MEDICAID, SELFPAY ==
--- NOTE | 2022-03-03 12:19 | MRI_ITS ---
EXAM: MR HEAD WITHOUT AND WITH INTRAVENOUS CONTRAST CLINICAL INDICATION: TIA, multiple risk factors. TECHNIQUE: Multiplanar and multisequence MR images of the brain were obtained without and with intravenous contrast. This report was created using [employer] report Knozen technology. CONTRAST: 20IV CLARISCAN COMPARISON: None. FINDINGS: BRAIN AND EXTRA-AXIAL SPACES: No diffusion restriction to suspect acute or subacute ischemic infarct. No remote cortical based ischemic infarct. T2 FLAIR hyperintensity foci in the white matter of both cerebral hemispheres are chronic white matter ischemic changes. Following IV contrast administration, there are no abnormal enhancing lesions intraaxially and extra-axially. No intra- or extra-axial hemorrhage. No intracranial mass or mass effect. Posterior fossa structures are unremarkable. Ventricles are appropriate for age. No hydrocephalus. Basal cisterns are patent. SELLA: Unremarkable. Normal sella turcica, pituitary gland, infundibular stalk, optic chiasm and hypothalamus. AUDITORY SYSTEM: Unremarkable. The internal auditory canals are patent. BONES/JOINTS: Unremarkable. No discrete lytic or blastic abnormalities. SINUSES: Unremarkable as visualized. Clear. MASTOID AIR CELLS: Unremarkable as visualized. Clear. ORBITS: Unremarkable as visualized. Both globes, extraocular muscles, optic nerves and retrobulbar fat appear unremarkable. VASCULATURE: Unremarkable as visualized. Normal flow voids in the major intracranial circulation. MRI/Brain W/WO Contrast IMPRESSION: 1. No MRI evidence of acute or subacute ischemic infarct or remote ischemic infarct. 2. Chronic white matter ischemic changes in both cerebral hemispheres. 3. No abnormal enhancing lesions intraaxially and extra-axially. Electronically Signed: Romario Baker MD at 14:35 EDT ,
== END | disposition home or self-care (01) ==
LOC: MRI 12:18
PROVIDERS: PCP Internal Medicine; Visit Provider Internal Medicine
DX: G45.9 Transient cerebral ischemic attack, unspecified (principal)
CPT/HCPCS: 70553; A9575

== ENCOUNTER → 2022-09-08 | Outpatient (CLI) | payer MEDICARE, MEDICAID, SELFPAY ==
[2022-09-08 09:54] LABS: Absolute Lymphocyte Count 3.12 X10^3/uL (0.83-4.51); Absolute Neutrophil Count 7.5 X10^3/uL (2.0-7.7); Basophil# 0.11 X10^3/uL; Basophil% 0.9 % (0-1); Eosinophil# 0.75 X10^3/uL; Hematocrit 47.1 % (37-47); Hemoglobin 14.9 g/dL (12.0-15.0); Lymphocyte # 3.12 X10^3/ul (0.83-4.51); Lymphocyte % 24.9 % (19-41); Mean Corp Hgb Conc 31.6 g/dL (32-36); Mean Corpuscular Hgb 29.7 pg (27.0-32.0); Mean Corpuscular Volume 93.8 fL (81-99); Mean Platelet Vol. 10.5 fl (6.2-12.0); Monocyte# 0.99 X10^3/uL; Monocyte% 7.9 % (0-10); NRBC Flagged by Analyzer 0 % (0-5); Neutrophil % 59.8 % (47-70); Platelet Count 269 K/mm3 (150-450); RBC Distribution Width CV 13.4 % (11.6-14.6); Red Blood Count 5.02 M/mm3 (4.2-5.4); White Blood Count 12.5 K/mm3 (4.4-11.0)
[2022-09-08 10:10] LABS: Hemoglobin A1c 7.8 % (3.8-5.6)
[2022-09-08 10:12] LABS: Cholesterol 141 mg/dL (200); High Density Lipoprotein 53 mg/dL; T4 Free Direct 1.34 ng/dL (0.76-1.46); Thyroid Stim Hormone (TSH) 1.66 uIU/mL (0.358-3.74); Triglycerides 188 mg/dL; Very Low Density Lipoprotein 38 mg/dL (5-40)
== END | disposition home or self-care (01) ==
PROVIDERS: PCP Internal Medicine; Referring Provider Internal Medicine; Visit Provider Internal Medicine
DX: Z85.828 Personal history of other malignant neoplasm of skin (principal); Z86.39 Personal history of other endocrine, nutritional and metabolic disease; E66.9 Obesity, unspecified; E78.5 Hyperlipidemia, unspecified; I10 Essential (primary) hypertension; E03.9 Hypothyroidism, unspecified; R06.00 Dyspnea, unspecified
CPT/HCPCS: 36415; 80061; 83036; 84439; 84443; 84481; 85025

== ENCOUNTER → 2022-09-16 | Outpatient (CLI) | payer MEDICARE, MEDICAID, SELFPAY ==
--- NOTE | 2022-09-16 12:08 | RAD_ITS ---
STUDY: X-RAY CHEST REASON FOR EXAM: Female, 72 years old. Dyspnea on exertion TECHNIQUE: Frontal and lateral views of the chest. COMPARISON: 07/20/2021. FINDINGS: Normal lung volumes. Again seen are widespread interstitial and patchy airspace opacities throughout both lungs especially pronounced in the lung bases. Bronchiectasis is seen in the lung bases, worse on the left. No effusions. Normal size heart. Normal mediastinum and leora. Normal visualized pulmonary arteries. Normal visualized aortic arch and descending thoracic aorta. There are diffuse degenerative changes of the visualized thoracic spine. Normal visualized ribs, clavicles, and shoulders. There is no demonstrated abnormality of the visualized soft tissue structures of the upper abdomen. RAD/Chest PA and Lateral IMPRESSION: No definite change. Diffuse interstitial and patchy airspace opacities throughout both lungs, probably representing chronic fibrotic and scarring changes. Bronchiectasis in both lung bases. Electronically Signed: Chris Patiño MD at 19:46 EDT ,
[2022-09-16 12:26] LABS: BNP,B-Type NATRIURETIC PEPTIDE 111.2 pg/mL (0-100)
== END | disposition home or self-care (01) ==
LOC: LAB 11:37
PROVIDERS: PCP Internal Medicine; Referring Provider Internal Medicine; Visit Provider Internal Medicine
DX: R06.00 Dyspnea, unspecified (principal); R07.89 Other chest pain
CPT/HCPCS: 36415; 71046; 83880

== ENCOUNTER → 2022-09-23 | Outpatient (CLI) | payer MEDICARE, MEDICAID, SELFPAY ==
[2022-09-23 12:33] LABS: Absolute Lymphocyte Count 3.09 X10^3/uL (0.83-4.51); Absolute Neutrophil Count 9.1 X10^3/uL (2.0-7.7); Basophil# 0.13 X10^3/uL; Basophil% 0.9 % (0-1); Eosinophil# 0.51 X10^3/uL; Eosinophils% 3.7 % (0-5); Hematocrit 43.3 % (37-47); Hemoglobin 14.3 g/dL (12.0-15.0); Lymphocyte # 3.09 X10^3/ul (0.83-4.51); Lymphocyte % 22.3 % (19-41); Mean Corpuscular Hgb 30.4 pg (27.0-32.0); Mean Corpuscular Volume 92.1 fL (81-99); Mean Platelet Vol. 9.7 fl (6.2-12.0); Monocyte% 7.2 % (0-10); NRBC Flagged by Analyzer 0 % (0-5); Neutrophil # 9.07 X10^3/uL (2.7-7.7); Neutrophil % 65.4 % (47-70); Platelet Count 264 K/mm3 (150-450); RBC Distribution Width CV 13.3 % (11.6-14.6); RBC Distribution Width SD 45.5 fl (35.1-43.9); White Blood Count 13.9 K/mm3 (4.4-11.0)
[2022-09-23 13:12] LABS: Anion Gap 7 (5-15); BUN 15 mg/dL (7-18); Calcium,Total 9.6 mg/dL (8.5-10.1); Chloride 100 mmol/L (98-107); Creatinine, Serum 0.94 mg/dL (0.55-1.02); EST Glomerular Filtration Rate 62 mL/min (>60); Est Glom Filt Rate - Afr Amer 75 mL/min (>60); Glucose 213 mg/dL (74-106); Potassium 4.5 mmol/L (3.5-5.1); Sodium Level 133 mmol/L (136-145); Thyroid Stim Hormone (TSH) 2.26 uIU/mL (0.358-3.74)
[2022-09-25 08:13] VITALS: BMI 43.7
== END | disposition home or self-care (01) ==
LOC: PAT 10-22 16:51
PROVIDERS: PCP Internal Medicine; Referring Provider Internal Medicine Cardiovascular Disease; Visit Provider Internal Medicine Cardiovascular Disease
DX: R07.9 Chest pain, unspecified (principal); R06.09 Other forms of dyspnea
CPT/HCPCS: 36415; 80048; 84443; 85025

== ENCOUNTER → 2022-09-24 | Outpatient (CLI) | payer MEDICARE, MEDICAID, SELFPAY ==
--- NOTE | 2022-09-24 10:54 | ECHOCS_ITS ---
Reason For Study: DYSPNEA Procedure This was a 2D Doppler, Color Flow transthoracic echocardiogram. The study was technically difficult. Contrast injection was performed. Exam performed in department. Left Ventricle Normal LV size. The estimated ejection fraction is 65 %. No evidence for diastolic dysfunction. No regional wall motion abnormalities noted. Right Ventricle Normal RV size. Normal systolic function. Atria Normal left atrium. Normal right atrium. No doppler evidence for ASD. Mitral Valve There is moderate mitral annular calcification. There is no mitral valve stenosis. No mitral valve insufficiency. Tricuspid Valve There is no tricuspid stenosis. Trivial tricuspid valve insufficiency. Unable to estimate RV systolic pressure due to insufficient tricuspid regurgitant envelope. Aortic Valve Trisinus/trileaflet aortic valve. There is no aortic stenosis. No aortic valve insufficiency. Pulmonic Valve There is no pulmonic valvular stenosis. No pulmonic valve insufficiency. Great Vessels Normal aortic root. Pericardium/Pleural No pericardial effusion. Medication 22 gauge I.V. with prn adaptor inserted into left arm. Diluted definity 1ml given slow IV push to enhance endocardial definition. MMode/2D Measurements & Calculations LVIDd: 5.1 cm IVSd: 1.0 cm Ao root diam: 3.4 cm LVIDs: 3.3 cm LVPWd: 1.1 cm FS: 35.7 % LAV(MOD-bp): 71.3 ml LVAd ap4: 26.7 cm2 SV(MOD-sp4): 57.8 ml LAV(MOD-bp) Indexed: 35.1 ml/m2 LVLd ap4: 7.1 cm LAV(MOD-sp2): 73.3 ml EDV(MOD-sp4): 83.4 ml LAV(MOD-sp4): 68.7 ml EDV(sp4-el): 85.3 ml LVAs ap4: 14.1 cm2 LVLs ap4: 6.5 cm ESV(MOD-sp4): 25.7 ml ESV(sp4-el): 26.1 ml EF(MOD-sp4): 69.2 % EF(sp4-el): 69.4 % SV(sp4-el): 59.2 ml LA A4 area: 23.4 cm2 LA dimension(2D): 4.7 cm RA A4 area: 14.2 cm2 Time Measurements MV dec time: 0.35 sec Doppler Measurements & Calculations MV E max erlin: 55.0 cm/sec Lat Peak E' Erlin: 5.6 cm/sec Med Peak E' Erlin: 5.7 cm/sec MV A max erlin: 90.1 cm/sec E/E' lat: 9.9 E/E' med: 9.6 MV E/A: 0.61 MV V2 max: 84.4 cm/sec MV dec slope: 158.5 cm/sec2 Ao V2 max: 146.6 cm/sec MV max P.8 mmHg Ao max P.6 mmHg MV V2 mean: 35.4 cm/sec Ao V2 mean: 95.6 cm/sec MV mean P.77 mmHg Ao mean P.3 mmHg MV V2 VTI: 26.2 cm Ao V2 VTI: 32.1 cm AV (velocity ratio): 0.81 LV V1 max: 119.9 cm/sec PA V2 max: 94.7 cm/sec LV V1 max P.7 mmHg PA V2 mean: 65.0 cm/sec LV V1 mean P.1 mmHg LV V1 mean: 81.3 cm/sec LV V1 VTI: 26.0 cm ECHO/Echo Complete W/ Contrast Interpretation Summary The estimated ejection fraction is 65 %. No evidence for diastolic dysfunction. Ordering Physician: Khalida Pires Referring Physician: Khalida Pires Performed By: Maur Wu RCS
== END | disposition home or self-care (01) ==
LOC: CVS 10:51
PROVIDERS: PCP Internal Medicine; Referring Provider Internal Medicine; Visit Provider Internal Medicine
DX: R06.00 Dyspnea, unspecified (principal); E66.9 Obesity, unspecified
CPT/HCPCS: 93306; Q9957; A4216; C8929

== ENCOUNTER → 2022-10-01 | Outpatient (CLI) | payer MEDICARE, MEDICAID, SELFPAY ==
--- NOTE | 2022-10-01 07:45 | CT_ITS ---
STUDY: CT CHEST WITHOUT CONTRAST REASON FOR EXAM: Female, 72 years old. Interstitial lung dx, dyspnea RADIATION DOSAGE (If Supplied By Facility): CTDIvol = ( 18.92 ) mGy, DLP = ( 769.00 ) mGycm TECHNIQUE: Transaxial imaging was performed without the administration of intravenous contrast material. Multiplanar coronal and sagittal images were reformatted. Individualized dose optimization techniques were used for this CT. COMPARISON: Comparison is made with prior chest radiograph dated September 16, 2022. FINDINGS: CHEST Small benign appearing bilateral axillary lymph nodes. Diffuse increased interstitial markings involving both upper and lower lobes with evidence of a bullous formation and there is a pleural blebs and bronchiectasis more prominent in the lower lobes suggestive of bilateral chronic interstitial fibrosis. There is no demonstrated pleural abnormality. There are calcifications of the coronary arteries. Prior mitral valve replacement. There are multiple small lymph nodes within the mediastinum, which are normal in size and morphology most compatible with reactive lymph hyperplasia. Normal hilar regions. Normal unenhanced pulmonary arteries. Normal aorta arch and descending thoracic aorta. There are multi-level degenerative changes of the thoracic spine. Calcified splenic granulomas. CT/Chest without Contrast IMPRESSION: Findings suggestive of bilateral chronic interstitial fibrosis with evidence of bullous formation and subpleural blebs and honeycombing with bronchiectasis. Electronically Signed: Dereje Villanueva MD at 14:11 EDT ,
== END | disposition home or self-care (01) ==
LOC: CT 07:39
PROVIDERS: PCP Internal Medicine; Referring Provider Internal Medicine; Visit Provider Internal Medicine
DX: J84.9 Interstitial pulmonary disease, unspecified (principal)
CPT/HCPCS: 71250

== ENCOUNTER → 2022-10-02 | Outpatient (CLI) | payer MEDICARE, MEDICAID, SELFPAY ==
--- NOTE | 2022-10-02 16:22 | STRESSREP ---
Stress Test Report Pharmacologic myocardial perfusion stress test. 72-year-old lady with a history of chest pain Resting EKG demonstrates sinus rhythm with a rate of 65 bpm. Resting blood pressure is 178/90 mmHg. 0.4 mg of regadenoson was infused per usual protocol followed by rapid intravenous saline flush injection. Continuous EKG monitoring was performed. The maximum heart rate was 79 bpm which was 53% of max impacted heart rate the maximum workload was 1 metabolic equivalent. At rest there were no ST or T wave changes noted to suggest ischemia and at peak infusion nonspecific ST changes were noted which did not meet the criteria for ischemia. No clinical angina is noted. The final blood pressure was 154/84 mmHg. Myocardial perfusion protocol. 14.6 mCi of technetium 99m sestamibi was injected at rest. 0.4 mg of regadenoson was infused per usual protocol. At peak infusion 44.3 mCi of technetium 99m sestamibi was injected stress images were obtained stress and rest images were reconstructed and compared in the short axis vertical long and horizontal long axis. Gated images were also obtained. Perfusion SPECT analysis: Review of the stress images demonstrate normal uptake of tracer noted in all areas of the myocardium. The resting images similar demonstrated normal uptake of tracer noted in all areas of the myocardium. No areas of reversibility are noted to suggest ischemia and no previous infarct is noted. Gated SPECT analysis: The gated ejection fraction is 85%. Conclusion: Normal pharmacologic myocardial perfusion stress test. Preserved ejection fraction.
== END | disposition home or self-care (01) ==
LOC: CVS 06:32
PROVIDERS: PCP Internal Medicine; Referring Provider Internal Medicine Cardiovascular Disease; Visit Provider Internal Medicine Cardiovascular Disease
DX: R06.09 Other forms of dyspnea (principal)
CPT/HCPCS: 78452; 93017; A9500; A4216; J2785

== ENCOUNTER 2022-10-27 19:50 | Emergency (ER) | payer MEDICARE, MEDICAID, SELFPAY ==
[2022-10-27 19:51] VITALS: BP 199/66; PULSE 69; RESP 24; TEMP 36.2; O2SAT 89; BMI 45.1
--- NOTE | 2022-10-27 20:09 | CT_ITS ---
STUDY: CTA CHEST REASON FOR EXAM: Female, 72 years old. PE RADIATION DOSAGE (If Supplied By Facility): CTDIvol = ( 14.97 ) mGy, DLP = ( 454.34 ) mGycm TECHNIQUE: The examination was performed with the intravenous administration of IV 100mL Isovue-370. Post-processing of the angiographic images was performed, with multiplanar reformation and 3D reconstruction. Individualized dose optimization techniques were used for this CT. COMPARISON: None. FINDINGS: Exam is limited by extensive streak artifact related to patient size, retroverted motion, and bibasilar infiltrates. There is limited enhancement of the main pulmonary artery and right and left pulmonary arteries. There is limited enhancement of the bilateral peripheral pulmonary arteries. Specifically, most of the contrast is seen in the left brachiocephalic vein and SVC, and the aorta is enhanced as much as the pulmonary arteries. This indicates a much too broad contrast bolus with improper timing. Pulmonary emboli cannot be excluded beyond the pulmonary trunk. Normal thoracic aorta and visualized great vessels. There is no demonstrated aortic dissection. There is mild cardiac cardiomegaly. Nonspecific mediastinal adenopathy and bilateral hilar adenopathy seen. Normal visualized trachea and bronchi. There are low lung volumes. There is severe diffuse bilateral interstitial prominence. The appearance is most consistent with fibrosis, especially end-stage fibrosis in the lung bases. However, superimposed congestion/edema is also possible. Atypical inflammatory process less likely but not excluded. No gross effusions. Normal chest wall structures. There are degenerative changes of thoracic spine. Normal visualized upper abdomen. CT/CTA Chest W/WO Contrast IMPRESSION: Significantly limited as above. Technically inadequate exam for confirming or excluding pulmonary emboli as indicated above. Improper bolus and timing. No gross central pulmonary emboli. Markedly abnormal lungs. Most likely chronic pulmonary disease with severe fibrosis but superimposed congestion/edema or even atypical inflammatory process possible also. Electronically Signed: Chris Patiño MD at 21:32 EDT ,
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
[2022-10-27] MEDS: Ipratropium/Albuterol Sulfate 3 ML AMPUL.NEB INHALATION (20:21)
[2022-10-27 20:22] VITALS: PULSE 72; RESP 18
[2022-10-27 20:54] LABS: ALB/GLOB Ratio 0.8 RATIO (0.9-2.4); AST(SGOT) 17 U/L (15-37); Alanine Aminotransfer ALT/SGPT 25 U/L (13-56); Albumin, Serum 2.9 g/dL (3.2-5.0); Alkaline Phosphatase 71 U/L (45-117); Anion Gap 7 (5-15); BUN 16 mg/dL (7-18); BUN/Creat Ratio 16.6 RATIO (10-20); Chloride 101 mmol/L (98-107); Creatinine, Serum 0.97 mg/dL (0.55-1.02); EST Glomerular Filtration Rate 60 mL/min (>60); Est Glom Filt Rate - Afr Amer 73 mL/min (>60); Estimated Creatinine Clearance 40.85 ml/min; Globulin 3.5 g/dL (2.2-4.2); Glucose 218 mg/dL (74-106); Potassium 4.3 mmol/L (3.5-5.1); Protein, Total 6.4 g/dL (6.4-8.2); Sodium Level 135 mmol/L (136-145)
[2022-10-27 21:37] VITALS: BP 129/51; PULSE 62; RESP 16; TEMP 36; O2SAT 96
== END 2022-10-27 22:17 | disposition home or self-care (01) ==
PROVIDERS: Emergency Provider Emergency Medicine; PCP Internal Medicine; Visit Provider Emergency Medicine
DX: J84.10 Pulmonary fibrosis, unspecified (principal); E11.9 Type 2 diabetes mellitus without complications; I10 Essential (primary) hypertension; R79.89 Other specified abnormal findings of blood chemistry; E78.5 Hyperlipidemia, unspecified; Z79.82 Long term (current) use of aspirin; E03.9 Hypothyroidism, unspecified; Z79.84 Long term (current) use of oral hypoglycemic drugs; Z90.49 Acquired absence of other specified parts of digestive tract; R06.00 Dyspnea, unspecified; T78.40XA Allergy, unspecified, initial encounter
CPT/HCPCS: 36415; 71275; 80053; 82785; 83880; 85379; 85652; 86003; 86038; 86140; 86225; 86235; 86256; 86431; 94640; 99283; Q9967; A4216

== ENCOUNTER → 2022-10-27 | Outpatient (CLI) | payer MEDICARE, MEDICAID, SELFPAY ==
[2022-10-27 17:38] LABS: Erythrocyte Sedimentation Rate 8 mm/hr (0-30)
[2022-10-27 17:48] LABS: BNP,B-Type NATRIURETIC PEPTIDE 72.2 pg/mL (0-100)
[2022-10-27 17:49] LABS: CRP 7.99 mg/L (0.0-3.0); Rheumatoid Factor < 10.0 IU/mL (<15)
[2022-10-27 18:40] LABS: D-Dimer Quantitative (DVT/PE) 1.85 FEU/ug/m (0.27-0.49)
[2022-11-01 09:07] LABS: ANTINUCLEAR ANTIBODIES DIRECT Negative (Negative); Alternaria tenuis <0.10 kU/L (Class 0); Ash, White <0.10 kU/L (Class 0); Aspergillus fumigatus <0.10 kU/L (Class 0); Bermuda Grass <0.10 kU/L (Class 0); Birch <0.10 kU/L (Class 0); Black Walnut <0.10 kU/L (Class 0); Cat Hair / Dander,Stand <0.10 kU/L (Class 0); Cedar, Mountain <0.10 kU/L (Class 0); Cladosporium herbarum <0.10 kU/L (Class 0); Cottonwood <0.10 kU/L (Class 0); D farinae Mite 0.14 kU/L (Class 0/I); D pteronyssinus 0.14 kU/L (Class 0/I); Dog Epithelia <0.10 kU/L (Class 0); Elm, American White <0.10 kU/L (Class 0); Immunoglobulin E 144 IU/mL (6-495); Maple/Box Elder <0.10 kU/L (Class 0); Mouse Urine <0.10 kU/L (Class 0); Mulberry, White <0.10 kU/L (Class 0); Oak, White <0.10 kU/L (Class 0); Pecan <0.10 kU/L (Class 0); Penicillium Notatum <0.10 kU/L (Class 0); Pigweed, Rough <0.10 kU/L (Class 0); Ragweed, Short/Common <0.10 kU/L (Class 0); Russian Thistle <0.10 kU/L (Class 0); Sheep Sorrel <0.10 kU/L (Class 0); Sycamore, American <0.10 kU/L (Class 0); Timothy Grass <0.10 kU/L (Class 0)
[2022-11-02 18:07] LABS: Cytoplasmic Ab (C-ANCA) <1:20 titer (Neg:<1:20); Immunoglobulin E 157 IU/mL (6-495); Perinuclear Ab (P-ANCA) <1:20 titer (Neg:<1:20)
== END | disposition home or self-care (01) ==
LOC: LAB 16:37
PROVIDERS: PCP Internal Medicine; Referring Provider Internal Medicine; Visit Provider Internal Medicine
DX: J84.9 Interstitial pulmonary disease, unspecified (principal); R06.00 Dyspnea, unspecified; T78.40XA Allergy, unspecified, initial encounter
CPT/HCPCS: 36415; 82785; 83880; 85379; 85652; 86003; 86038; 86140; 86225; 86235; 86256; 86431

== ENCOUNTER → 2022-11-06 | Outpatient (CLI) | payer MEDICARE, MEDICAID, SELFPAY ==
--- NOTE | 2022-11-07 05:38 | PFTCOMP ---
COMPLETE PULMONARY FUNCTION TEST INTERPRETATION Brief HPI: Patient is a 72-year-old female, currently under the care of Dr. Laura, who presents to [facility] for complete pulmonary function tests secondary to diagnosis of ILD. Respiratory therapist reports good effort and reproducible results. Interpretation: Forced expiration spirometry shows no large airways obstructive ventilatory defect with an FEV1 of 105% predicted. There is no significant bronchodilator response by strict ATS criteria. Spirograms are of poor quality and show exhalation for only 2 to 3 seconds, likely underestimating FVC. The respiratory flow volume loop shows a normal pattern. Lung volumes by body plethysmography show a normal total lung capacity at 3.7 L, 84% predicted. All other lung volumes are within normal limits. Diffusion capacity by carbon monoxide is severely decreased at 36% predicted. The airway resistance is normal. No previous pulmonary function tests were available for review. Impression: Disproportionate isolated reduction in diffusion capacity with lung volumes at the lower limit of normal, consistent with a pulmonary vascular disorder
== END | disposition home or self-care (01) ==
LOC: PSN 10:28
PROVIDERS: PCP Internal Medicine; Referring Provider Internal Medicine; Visit Provider Internal Medicine
DX: J84.9 Interstitial pulmonary disease, unspecified (principal)
CPT/HCPCS: 94060; 94726; 94729

== ENCOUNTER → 2023-04-28 | Outpatient (CLI) | payer MEDICARE, MEDICAID, SELFPAY ==
[2023-04-28 12:00] LABS: Absolute Lymphocyte Count 4.24 X10^3/uL (0.83-4.51); Absolute Neutrophil Count 8.2 X10^3/uL (2.0-7.7); Basophil# 0.16 X10^3/uL; Basophil% 1.1 % (0-1); Eosinophil# 0.73 X10^3/uL; Hematocrit 42.3 % (37-47); Hemoglobin 13.3 g/dL (12.0-15.0); Lymphocyte # 4.24 X10^3/ul (0.83-4.51); Lymphocyte % 28.9 % (19-41); Mean Corp Hgb Conc 31.4 g/dL (32-36); Mean Corpuscular Volume 92.4 fL (81-99); Mean Platelet Vol. 9.5 fl (6.2-12.0); Monocyte# 1.24 X10^3/uL; Monocyte% 8.5 % (0-10); NRBC Flagged by Analyzer 0 % (0-5); Neutrophil # 8.23 X10^3/uL (2.7-7.7); Neutrophil % 56.1 % (47-70); Platelet Count 275 K/mm3 (150-450); RBC Distribution Width CV 12.9 % (11.6-14.6); RBC Distribution Width SD 43.3 fl (35.1-43.9); Red Blood Count 4.58 M/mm3 (4.2-5.4); White Blood Count 14.7 K/mm3 (4.4-11.0)
[2023-04-28 13:33] LABS: ALB/GLOB Ratio 0.8 RATIO (0.9-2.4); AST(SGOT) 20 U/L (15-37); Alanine Aminotransfer ALT/SGPT 30 U/L (13-56); Albumin, Serum 3.4 g/dL (3.2-5.0); Alkaline Phosphatase 75 U/L (45-117); Anion Gap 7 (5-15); BUN 14 mg/dL (7-18); BUN/Creat Ratio 17.6 RATIO (10-20); Chloride 103 mmol/L (98-107); Cholesterol 138 mg/dL (200); EST Glomerular Filtration Rate 75 mL/min (>60); Est Glom Filt Rate - Afr Amer 91 mL/min (>60); Globulin 4.1 g/dL (2.2-4.2); Glucose 98 mg/dL (74-106); High Density Lipoprotein 62 mg/dL; Potassium 4.7 mmol/L (3.5-5.1); Protein, Total 7.5 g/dL (6.4-8.2); Sodium Level 137 mmol/L (136-145); T4 Free Direct 1.33 ng/dL (0.76-1.46); Triglycerides 131 mg/dL; Very Low Density Lipoprotein 26 mg/dL (5-40)
[2023-04-28 14:49] LABS: Hemoglobin A1c 6.8 % (3.8-5.6)
== END | disposition home or self-care (01) ==
LOC: LAB 11:48
PROVIDERS: PCP Internal Medicine; Referring Provider Internal Medicine; Visit Provider Internal Medicine
DX: J84.9 Interstitial pulmonary disease, unspecified (principal); E11.9 Type 2 diabetes mellitus without complications; Z85.828 Personal history of other malignant neoplasm of skin; I10 Essential (primary) hypertension; E66.9 Obesity, unspecified; E78.5 Hyperlipidemia, unspecified; E03.9 Hypothyroidism, unspecified; R06.00 Dyspnea, unspecified; E55.9 Vitamin D deficiency, unspecified; Z13.220 Encounter for screening for lipoid disorders; D72.829 Elevated white blood cell count, unspecified
CPT/HCPCS: 36415; 80053; 80061; 82306; 83036; 84439; 84443; 84481; 85025

== ENCOUNTER → 2023-05-24 | Outpatient (CLI) | payer MEDICARE, MEDICAID, SELFPAY ==
--- NOTE | 2023-05-25 10:06 | PFT ---
INTRODUCTION: The patient is a 73-year-old female who presents for pulmonary function studies secondary to a diagnosis of interstitial lung disease. Respiratory therapy reported good patient effort. Bronchodilators were used during testing. INTERPRETATION: Forced expiration spirometry demonstrates no evidence of a large airways obstructive ventilatory defect. There was no significant response to aerosolized bronchodilators. Body plethysmography was performed and revealed a decreased TLC to 2.94 L, 64% of predicted, indicative of a moderate restrictive ventilatory impairment. Diffusing capacity by single breath CO is reduced at 33% of predicted. IMPRESSION: Moderate restrictive ventilatory impairment with severe reduction in diffusing capacity.
== END | disposition home or self-care (01) ==
LOC: PSN 13:01
PROVIDERS: PCP Internal Medicine; Referring Provider Internal Medicine Critical Care Medicine; Visit Provider Internal Medicine Critical Care Medicine
DX: J84.9 Interstitial pulmonary disease, unspecified (principal)
CPT/HCPCS: 94060; 94726; 94729

== ENCOUNTER → 2023-07-05 | Outpatient (CLI) | payer MEDICARE, MEDICAID, SELFPAY ==
--- OUTSIDE RECORDS SUMMARY | 2023-07-05 19:39 | XMS RPT_ITS | CCD ---
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 Name Role Phone EFREN NEGRO DO Admitting Unavailable FERNY RODRIGUEZ Referring Unavailable FERNY RODRIGUEZ Consulting Unavailable EFREN NEGRO DO Attending Unavailable EFREN NEGRO DO Primary Care Unavailable PROVIDER, UNKNOWN Consulting Unavailable Allergies Allergy Classification Reported Allergen(s) Allergy Type Date of Onset Reaction(s) Facility (1 source) Furosemide Drug Allergy [facility] Repository (1 source) Sulfonamides (Antibiotic) Drug allergy (disorder) [facility] Repository Problems Problem Classification Problem Date Documented Da te Episodic/Chronic Chronic obstructive pulmonary disease and bronchiectasis (1 source) Chronic obstructive pulmonary disease, unspecified; Translations: [Chronic obstructive pulmonary disease, unspecified] Onset: 01-08-2023 Chronic E Codes: Fall (1 source) Unspecified fall, initial encounter; Translations: [Unspecified fall, initial encounter] Onset: 01-08-2023 Episodic Essential hypertension (1 source) Essential (primary) hypertension; Translations: [Essential (primary) hypertension] Onset: 01-08-2023 Chronic Fracture of lower limb (1 source) Nondisplaced unspecified fracture of left lesser toe(s), initial encounter for closed fracture; Translations: [Nondisplaced unspecified fracture of left lesser toe(s), initial encounter for closed fracture] Onset: 01-08-2023 Episodic Other connective tissue disease (2 sources) Pain in left foot; Translations: [Pain in left foot] Onset: 01-08-2023 Episodic Other injuries and conditions due to external causes (1 source) Unspecified injury of head, initial encounter; Translations: [Unspecified injury of head, initial encounter] Onset: 01-08-2023 Episodic Residual codes; unclassified (1 source) Acquired absence of other specified parts of digestive tract; Translations: [Acquired absence of other specified parts of digestive tract] Onset: 01-08-2023 Episodic Sprains and strains (1 source) Strain of muscle, fascia and tendon at neck level, initial encounter; Translations: [Strain of muscle, fascia and tendon at neck level, initial encounter] Onset: 01-08-2023 Episodic Superficial injury; contusion (1 source) Contusion of other part of head, initial encounter; Translations: [Contusion of other part of head, initial encounter] Onset: 01-08-2023 Episodic Results Test Name Value Interpretation Reference Range Facil ity Encounters Encounter Date Encounter Type Care Provider Facility Start: 01-08-2023 End: 01-09-2023 Emergency department patient visit EFREN DO NEGRO [facility] Payers Date Payer Category Payer Unknown [id number] Medicaid [id number] Unknown [id number] Summary Purpose Family History No Family History Records FoundNo Family History Records FoundNo Family History Records Found Advance Directives No Advanced Directives Records FoundNo Advanced Directives Records FoundNo Advanced Directives Records Found Additional Source Comments INFORMATION SOURCE (unrecogn ized section and content) DATE CREATED AUTHOR AUTHOR'S ORGANIZ ATION 06/11/2020 [facility] DATE CREATED AUTHOR AUTHOR'S ORGANIZ ATION 01/11/2023 [facility] FOR RECORDS PERTAINING TO PATIENTS WHO ARE OR HAVE BEEN ENROLLED IN A CHEMICAL DEPENDENCY/SUBSTANCEABUSE PROGRAM, SOME INFORMATION MAY BE OMITTED. This clinical summary was aggregated from multiple sources. Caution should be exercised in using it in the provision of clinical care. This summary normalizes information from multiple sources, and as a consequence, information in this document may materially change the coding, format and clinical context of patient data. In addition, data may be omitted in some cases. CLINICAL DECISIONS SHOULD BE BASED ON THE PRIMARY CLINICAL RECORDS. [facility]. provides no warranty or guarantee of the accuracy or completeness of information in this document.
== END | disposition home or self-care (01) ==
LOC: SL 19:36
PROVIDERS: PCP Internal Medicine; Visit Provider Nurse Practitioner Acute Care
DX: G47.33 Obstructive sleep apnea (adult) (pediatric) (principal)
CPT/HCPCS: 95810